=== PATIENT | female | born 1980 | race Two or more races ===

== ENCOUNTER 2020-01-08 12:34 | Outpatient (CLI) | payer OTHER ==
[~2020-01-08 12:34] MED LIST: CIPRO500 MG PO; PYRIDIUM200 MG PO
== END 2020-01-08 15:00 | disposition home or self-care (01) ==
LOC: LAB 12:34
PROVIDERS: ATTEND Urology
DX: N30.00 Acute cystitis without hematuria (principal); B96.29 Other Escherichia coli [E. coli] as the cause of diseases classified elsewhere